=== PATIENT | male | born 1960 | race Caucasian/White ===

== ENCOUNTER 2016-08-20 13:15 | Inpatient (IN) | payer OTHER ==
[~2016-08-20 13:15] MED LIST: Naloxone 0.4 mg/mL 1mL Vial ONE
[2016-08-20 13:23] VITALS: BP 126/83
--- NOTE | 2016-08-20 13:39 | ED Physician Chart ---
Chief Complaint/HPI - Patient Information Date Seen:: 08/20/16 Time Seen:: 13:34 Chief Complaint:: overdose History of Present Illness:: pt found w decreased LOC at home...brought in by ems. pt found at home w 2 empty bottles of norco and klonopin nearby. he has a past hx of 2x attempted suicide w 1x by driving car off a [place] and 1x by OD in past. no note or known conversation of threatened suicide lately. pt found to be breathing ok w vs ok . he was totally unresponsive to stimuli. EMS found pt had a ok fsbs. iv was started in l arm and narcan 2mg given w/o change in status. as of initial encounter in ED pt was given a trial of narcan 2mg w no change and then was intubated for airway protection as pt seems to have no corneal nor gag reflex. minimal hx available....a spouse is supposed to be on way. 1;37p (3;41p) arrives now as a ems run w alt loc and etoh and ? drug od ingestion. she is alert and talking and seems to indicate that Parrish may have ingested SOMA as well. she says he was unresponsive/unarousable for 10 hrs prior to her call for ems. Allergies:: Allergies Allergy/AdvReac Type Severity Reaction Status Date / Time UNOBTN - Unobtainable Allergy Verified 08/20/16 13:23 Vitals:: Vital Signs - 8 hr 08/20/16 13:23 Temp 97.5 F HR 88 RR 25 BP 126/83 O2 Sat % 97 Historian:: EMS Review of Systems - Review of Systems General/Constitutional: Other (pt unable to speak on arrival. LOC) Neurological: Weakness, Confusion Past Medical History - Past Medical History Past Medical History: Other (unknown) Social History: Other (lives at home w spouse) Medication: Reviewed Family Medical History - Family Member Mother History Unknown: Yes Physical Exam - Physical Examination General/Constitutional: Well-developed, well-nourished, No distress, Non-toxic appearing Other Gen/Cons comments:: thin muscular male w mult of tatoos. pt is totally unresponsive to gag reflex, corneal reflex nor deep stimulation. a dropped hand does hit his face. pts lungs are clear and breathing steady. no sx of trauma. no spontaneous mvts. appears wn/wh. Head: Atraumatic Eyes: Lids, conjuctiva normal, PERRL, EOMI Skin: Nl inspection, No rash, No skin lesions, No ecchymosis, Well hydrated, No lymphadenopathy ENMT: External ears, nose nl, Lips, teeth, gums nl Neck: No JVD, No nuchal rigidity, No bruit, No mass, No stridor Respiratory: Nl effort/Exclusion, Clear to Auscultation, No Wheeze/Rhonchi/Rales Cardio Vascular: RRR, No murmur, gallop, rubs, NL S1 S2 GI: No tenderness/rebounding/guarding, No organomegaly, No hernia, Normal BS's, Nondistended, No mass/bruits, No McBurney tenderness : No CVA tenderness Extremities: No tenderness or effusion, Full ROM, normal strength in all extremities, No edema, Normal digits & nails Other Extremities comments:: cold in distal extremities but w palpable pulses Neuro/Psych: DTR's symmetric Misc: normal gait, Normal back, No paraspinal tenderness Labs/Radiology/EKG Results - Lab Results Results: Laboratory Tests 08/20/16 08/20/16 08/20/16 13:40 13:40 13:40 WBC 8.3 RBC 4.64 Hgb 15.5 Hct 45.9 MCV 98.8 MCH 33.4 H MCHC Differential 33.8 RDW 12.7 Plt Count 135 L MPV 7.5 Band Neutrophils % 1 Neutrophils (Manual) 86 H Lymphocytes 5 L Monocytes 8 Eosinophils 0 Platelet Estimate ADEQUATE Platelet Morphology NORMAL RBC Morph Micro Appear NORMAL Specimen Source Sample Site pH pCO2 pO2 HCO3 Base Excess O2 Saturation Octavio Test Vent Rate Inspired O2 Tidal Volume PEEP Pressure (ins/psv/peep) Critical Value Sodium 132 L Potassium 4.8 Chloride 109 H Carbon Dioxide 16.0 L Anion Gap 11.8 BUN 11 Creatinine 0.9 Est GFR ( Amer) > 60.0 Est GFR (Non-Af Amer) > 60.0 BUN/Creatinine Ratio 12.2 Glucose 124 H Calcium 9.0 Total Bilirubin 0.3 AST 16 ALT 9 Alkaline Phosphatase 45 Creatine Kinase Troponin I Total Protein 6.9 Albumin 4.0 L Globulin 2.9 Albumin/Globulin Ratio 1.4 Urine Source Urine Color Urine Clarity Urine pH Ur Specific [place] Urine Protein Urine Glucose (UA) Urine Ketones Urine Blood Urine Nitrate Urine Bilirubin Urine Urobilinogen Ur Leukocyte Esterase Urine RBC Urine WBC Ur Epithelial Cells Urine Bacteria Salicylates < 25.0 L Urine Opiates Screen Acetaminophen < 10.0 L Ur Barbiturates Screen Ur Phencyclidine Scrn Amphetamines Screen U Methamphetamines Scrn U Benzodiazepines Scrn U Cocaine Metab Screen U Cannabinoids Screen Ethyl Alcohol < 10 08/20/16 08/20/16 08/20/16 13:40 13:40 13:45 WBC RBC Hgb Hct MCV MCH MCHC Differential RDW Plt Count MPV Band Neutrophils % Neutrophils (Manual) Lymphocytes Monocytes Eosinophils Platelet Estimate Platelet Morphology RBC Morph Micro Appear Specimen Source Sample Site pH pCO2 pO2 HCO3 Base Excess O2 Saturation Octavio Test Vent Rate Inspired O2 Tidal Volume PEEP Pressure (ins/psv/peep) Critical Value Sodium Potassium Chloride Carbon Dioxide Anion Gap BUN Creatinine Est GFR ( Amer) Est GFR (Non-Af Amer) BUN/Creatinine Ratio Glucose Calcium Total Bilirubin AST ALT Alkaline Phosphatase Creatine Kinase 138 Troponin I < 0.01 L Total Protein Albumin Globulin Albumin/Globulin Ratio Urine Source CATH Urine Color YELLOW Urine Clarity HAZY Urine pH 5.5 Ur Specific [place] 1.025 Urine Protein 30 H Urine Glucose (UA) NEGATIVE Urine Ketones TRACE Urine Blood LARGE H Urine Nitrate NEGATIVE Urine Bilirubin NEGATIVE Urine Urobilinogen 0.2 Ur Leukocyte Esterase NEGATIVE Urine RBC >100 H Urine WBC 0-2 Ur Epithelial Cells RARE Urine Bacteria FEW Salicylates Urine Opiates Screen Acetaminophen Ur Barbiturates Screen Ur Phencyclidine Scrn Amphetamines Screen U Methamphetamines Scrn U Benzodiazepines Scrn U Cocaine Metab Screen U Cannabinoids Screen Ethyl Alcohol 08/20/16 08/20/16 13:45 14:08 WBC RBC Hgb Hct MCV MCH MCHC Differential RDW Plt Count MPV Band Neutrophils % Neutrophils (Manual) Lymphocytes Monocytes Eosinophils Platelet Estimate Platelet Morphology RBC Morph Micro Appear Specimen Source Arterial Sample Site RB pH 7.27 L pCO2 36.0 pO2 224.0 H HCO3 16.5 L Base Excess -9.6 L O2 Saturation 100.0 Octavio Test NA Vent Rate 12 Inspired O2 60 Tidal Volume 500 PEEP 5 Pressure (ins/psv/peep) NA Critical Value E.COHN Sodium Potassium Chloride Carbon Dioxide Anion Gap BUN Creatinine Est GFR ( Amer) Est GFR (Non-Af Amer) BUN/Creatinine Ratio Glucose Calcium Total Bilirubin AST ALT Alkaline Phosphatase Creatine Kinase Troponin I Total Protein Albumin Globulin Albumin/Globulin Ratio Urine Source Urine Color Urine Clarity Urine pH Ur Specific [place] Urine Protein Urine Glucose (UA) Urine Ketones Urine Blood Urine Nitrate Urine Bilirubin Urine Urobilinogen Ur Leukocyte Esterase Urine RBC Urine WBC Ur Epithelial Cells Urine Bacteria Salicylates Urine Opiates Screen POSITIVE H Acetaminophen Ur Barbiturates Screen NEGATIVE Ur Phencyclidine Scrn NEGATIVE Amphetamines Screen NEGATIVE U Methamphetamines Scrn NEGATIVE U Benzodiazepines Scrn POSITIVE H U Cocaine Metab Screen NEGATIVE U Cannabinoids Screen NEGATIVE Ethyl Alcohol - Radiology Results Results: cxr ett placed ok. else nad ct head nad per rad report (;17) - EKG Interpretations EKG Time:: 13:50 Rhythm: nsr Rate: 83 Comments:: st elev minimal w upward concavity in inferior leads (read by machine as pos acute inf HI) [2;01pm read and call placed to IC Cards...] Assessment - Assessment Critical Care Time: 100 Excludes all billable procedures: Yes This condition life threatening/high prob of deterioration: Yes - Procedures Procedures:: INTUBATION for airway protection on pt w decreased LOC w no gag reflex despite narcan 4mg total. Pt intubated w 7.5 ett using direct laryngoscopy. no aspiration seen. suction was at ready. placement of ett confirmed by auscultation and chest rise and sao2. colorimetric change was poor initially indication likely presence of hypercapneic initially. ett confirmed ok by cxr. pt was not alert enough and no fam member here to give us consent so consent assumed due to pt severity and imminent danger ED Septic Shock - . Is Septic Shock (SBP<90, OR Lactate>4 mmol\L) present?: No - <6hrs of presentation: Vital Signs: Vital Signs - 8 hr 08/20/16 13:23 Temp 97.5 F HR 88 RR 25 BP 126/83 O2 Sat % 97 Reassessment (Disposition) - Reassessment Reassessment:: pt having mild twitching of arms. could be sz activity or shivering or posturing. pupils are midrange an d reactive sltly but w no nystagmus etc;;; ativan 2mg iv ordered now (2;20p) (2;35) case justo Vega (distribution driver Cards Dr) he has reviewed EKG and does not think it is a AMI. I agree that the ECG is not convincing to me for this either. case dw DR Sandra will admit to ICU... psy consult ... Reassessment Condition:: Improved - Diagnosis Diagnosis:: 1 acute altered mental status 2 suspected multi drug overdose with soma, norco (or other narcotic), and klonopin 3 suspected suicide attempt - Patient Disposition Admitted to:: ICU Condition at Disposition:: Improved
[2016-08-20] MEDS ORDERED: Naloxone 0.4 mg/mL 1mL Vial IV ONE (13:43)
[2016-08-20] MEDS ORDERED: Sodium Chloride 0.9% 1,000 ML IV ONE ×2 (13:43→14:07)
--- NOTE | 2016-08-20 13:46 | Diagnostic Imaging Report ---
CHEST X-RAY: AP view INDICATION: Intubation COMPARISON: None FINDINGS: An endotracheal tube is in place with tip 4.5 cm above the Ana. No focal consolidation or pleural effusions. Heart size is normal. There are probable old right rib fractures. IMPRESSION: Interval intubation with ET tube tip 4.5 cm above the Ana. No focal consolidation identified. Probable old right rib fractures. No evidence of pneumothorax.
[2016-08-20 13:51] LABS: HEMATOCRIT 45.9 % (39.0-49.0); HEMOGLOBIN 15.5 gm/dL (13.2-17.3); MEAN CELL VOLUME 98.8 fl (80-99); MEAN CORPUSCULAR HEMOGLOBIN 33.4 pg (26.0-30.0); MEAN CORPUSCULAR HGB CONC 33.8 pg (28.0-36.0); MEAN PLATELET VOLUME 7.5 fl; PLATELET COUNT 135 Th/cmm (150-400); RED BLOOD COUNT 4.64 Mil/cmm (4.30-5.70); RED CELL DISTRIBUTION WIDTH 12.7 % (11.5-20.0); WHITE BLOOD COUNT 8.3 Th/cmm (4.8-10.8)
[2016-08-20 14:04] LABS: URINE BILIRUBIN NEGATIVE (NEGATIVE); URINE BLOOD LARGE (NEGATIVE); URINE COLOR YELLOW; URINE GLUCOSE (UA) NEGATIVE (NEGATIVE); URINE PH 5.5; URINE PROTEIN 30 mg/dL (NEGATIVE); URINE UROBILINOGEN 0.2 E.U./dL (0.2 - 1.0)
[2016-08-20 14:05] LABS: URINE BACTERIA FEW /hpf (NONE SEEN); URINE EPITHELIAL CELLS RARE /lpf (FEW); URINE KETONE TRACE mg/dL (NEGATIVE); URINE RBC >100 /hpf (0-5); URINE WBC 0-2 /hpf (0-5)
[2016-08-20 14:08] LABS: ACETAMINOPHEN < 10.0 ug/mL (10.0-30.0); ALB/GLOB RATIO 1.4 (1.0-1.8); ALKALINE PHOSPHATASE 45 U/L (34-104); ANION GAP 11.8 (7.0-16.0); BILIRUBIN,TOTAL 0.3 mg/dL (0.3-1.0); BUN - UREA NITROGEN 11 mg/dL (7-25); BUN/CREATININE RATIO 12.2; CHLORIDE 109 mEq/L (98-107); CREATININE - SERUM 0.9 mg/dL (0.7-1.3); GLUCOSE 124 mg/dL (70-105); POTASSIUM SERUM 4.8 mEq/L (3.5-5.1); SGOT 16 U/L (13-39); SGPT/ALT 9 U/L (7-52); SODIUM SERUM 132 mEq/L (136-145)
[2016-08-20 14:13] LABS: AMPHETAMINE URINE NEGATIVE (NEGATIVE); BARBITURATES URINE NEGATIVE (NEGATIVE)
[2016-08-20 14:18] LABS: BAND NEUTROPHILE 1 % (0-10); EOSINOPHIL 0 % (0-5); NEUTROPHILS 86 % (40-80); PLATELET ESTIMATE ADEQUATE (NORMAL); PLATELET MORPHOLOGY NORMAL (NORMAL); TOTAL CELLS COUNTED 100
[2016-08-20 14:27] LABS: ABG SOURCE Arterial; BE(B) -9.6 mmol/L (-3.0-3.0); HCO3 16.5 mmol/L (20.0-26.0); pH 7.27 (7.35-7.45)
[2016-08-20 14:28] LABS: FIO2 60; MECH RATE 12; MECH VT 500
--- NOTE | 2016-08-20 15:17 | Diagnostic Imaging Report ---
Head CT without intravenous contrast Indication: pain Comparison: None Technique: Axial images were obtained from the vertex to the skull base without IV contrast. Coronal reconstructions were made. Total DLP: 647, [id number] FINDINGS: Images of the brain obtained without contrast demonstrate no acute hemorrhage. No mass lesions identified. The ventricles and basal cisterns are patent. The hernandez-white matter differentiation is preserved. There is no mass effect or midline shift. No skull fractures identified. Secretions of the nasal nasopharyngeal regions are noted. IMPRESSION: No acute intracranial abnormality Secretions of the nasal and nasopharyngeal regions, correlate clinically.
[2016-08-20] MEDS ORDERED: Albuterol Nebulizer 2.5mg/3mL HHN SCH (17:00)
[2016-08-20] MEDS: D5-0.9%NS 1,000 ML IV SCH (17:22)
[2016-08-20] MEDS: Pantoprazole 40 mg EC Tab PO SCH (18:00)
[2016-08-20] MEDS: Ipratropium Neb 0.5 mg/2.5 mL UD HHN SCH (18:58)
[2016-08-20] MEDS: Albuterol Nebulizer 2.5mg/3mL HHN SCH (18:58)
[2016-08-20] MEDS ORDERED: cefTRIAXone 1 GM in Sodium Chloride 0.9% 50 ML IV ONE (19:15)
[2016-08-20] MEDS ORDERED: Sodium Bicarbonate 8.4% 50mEq PFS IVP ONE (19:35)
[2016-08-20] MEDS: Chlorhexidine Gluconate 0.12% 15mL Mouthwash MM SCH (20:27)
--- NOTE | 2016-08-20 23:44 | Admit Criteria Form ---
Admit Criteria Forms - Admit Criteria Diagnosis: DRUG INGESTION OR OVERDOSE Clinical Indications for Admission to Inpatient Care ( Place 'X' for any and all applicable criteria): Admission is indicated for severe toxicity as indicated by ANY ONE of the following(1)(2)(3)(4)(5)(6): [ X]I. Inpatient admission required rather than observation care (Also use Drug Ingestion or Overdose: Observation Care guideline as appropriate) because of ANY ONE of the following: [ ]a) Altered mental status that is severe or persistent [ ]b) Clinical finding (eg, metabolic acidosis, hypoglycemia, bradycardia) that is severe or persistent [ ]c) Toxic drug level that is persistent [ ]d) Psychiatric risk status not acceptable for outpatient management [ ]e) Continuous intravenous infusion of anticoagulation, platelet inhibitor, vasoactive, or antiarrhythmic medication (15)(16) [X ]f) Other condition, treatment or monitoring requiring inpatient admission [ ]II. Respiratory abnormalities [ ]III. Specific finding indicating severe and likely prolonged drug toxicity [ ]IV. Hemodynamic instability [ ]V. Dangerous arrhythmia [ ]. Hypertension requiring inpatient treatment Extended stay beyond goal length of stay may be needed for (4): [ ]a) Neurologic or respiratory compromise [ ]b) Hemodynamic instability [ ]c) Persistent toxic drug levels (25) [ ]d) Severe drug toxicities or complications [ ]e) Ongoing antidote treatment (eg, acetaminophen overdose)(5) [ ]f) Older patients(65 years or older) The original [facility] content created by [employer] has been revised. The portions of the content which have been revised are identified through the use of italic text or in bold, and [facility] has neither reviewed nor approved the modified material. All other unmodified content is copyright [facility]. Please see references footnoted in the original [facility] edition 2016
[2016-08-21 05:19] LABS: % BASOPHILS 0.1 % (0.0-2.0); % EOSINOPHILS 0.2 % (0.0-5.0); % LYMPHOCYTES 10.1 % (20.0-50.0); % MONOCYTES 9.8 % (2.0-10.0); % NEUTROPHILS 79.8 % (40.0-80.0); HEMOGLOBIN 13.8 gm/dL (13.2-17.3); MEAN CELL VOLUME 98.9 fl (80-99); MEAN CORPUSCULAR HEMOGLOBIN 33.5 pg (26.0-30.0); MEAN CORPUSCULAR HGB CONC 33.9 pg (28.0-36.0); MEAN PLATELET VOLUME 7.7 fl; NEUTROPHILE ABSOLUTE 6.9 Th/cmm (1.8-8.0); PLATELET COUNT 160 Th/cmm (150-400); RED BLOOD COUNT 4.13 Mil/cmm (4.30-5.70); RED CELL DISTRIBUTION WIDTH 13.1 % (11.5-20.0); WHITE BLOOD COUNT 8.6 Th/cmm (4.8-10.8)
[2016-08-21 05:32] LABS: HEMATOCRIT 40.9 % (39.0-49.0)
[2016-08-21 05:41] LABS: ALB/GLOB RATIO 1.5 (1.0-1.8); ALKALINE PHOSPHATASE 40 U/L (34-104); ANION GAP 6.3 (7.0-16.0); BILIRUBIN,TOTAL 0.3 mg/dL (0.3-1.0); BUN - UREA NITROGEN 10 mg/dL (7-25); CALCIUM SERUM 8.6 mg/dL (8.6-10.3); CARBON DIOXIDE 20.5 mEq/L (21.0-31.0); CHLORIDE 114 mEq/L (98-107); GLUCOSE 139 mg/dL (70-105); MAGNESIUM 1.8 mg/dL (1.9-2.7); PHOSPHOROUS 1.8 mg/dL (2.5-5.0); POTASSIUM SERUM 3.8 mEq/L (3.5-5.1); SGOT 13 U/L (13-39); SGPT/ALT 6 U/L (7-52); SODIUM SERUM 137 mEq/L (136-145)
[2016-08-21 05:42] LABS: ACETAMINOPHEN < 10.0 ug/mL (10.0-30.0)
[2016-08-21] MEDS: D5-0.9%NS 1,000 ML IV SCH ×2 (05:47→17:17)
[2016-08-21 05:53] LABS: BNP 9.9 pg/mL (5.0-100.0)
[2016-08-21 06:36] LABS: TSH 1.22 uIU/ml (0.34-5.60)
[2016-08-21] MEDS: Albuterol Nebulizer 2.5mg/3mL HHN SCH ×4 (07:49→19:18)
[2016-08-21] MEDS: Ipratropium Neb 0.5 mg/2.5 mL UD HHN SCH ×4 (07:49→19:18)
[2016-08-21] MEDS: Chlorhexidine Gluconate 0.12% 15mL Mouthwash MM SCH (08:32)
[2016-08-21] MEDS: Pantoprazole 40 mg EC Tab PO SCH ×2 (08:32→16:11)
[2016-08-21 09:01] LABS: pH 7.52 (7.35-7.45)
[2016-08-21 09:02] LABS: ABG SOURCE Arterial; ALLEN TEST YES; BE(B) -0.5 mmol/L (-3.0-3.0); FIO2 30; HCO3 21.2 mmol/L (20.0-26.0); MECH RATE 16; MECH VT 500
--- NOTE | 2016-08-21 09:13 | Diagnostic Imaging Report ---
CHEST X-RAY: AP view INDICATION: NG tube placement COMPARISON: Chest x-ray 08/20/2016 at 1340 FINDINGS: Multiple images were obtained. Endotracheal tube is seen with tip 3 cm above the Ana. The final image demonstrates advancement of the NG tube and NG tube along the fundal portion of the stomach. Chronic lung changes are seen with no focal consolidation identified. IMPRESSION: NG tube within the fundal portion of the stomach No focal consolidation identified.
--- NOTE | 2016-08-21 09:14 | Diagnostic Imaging Report ---
CHEST X-RAY: AP view INDICATION: Pneumonia COMPARISON: Chest x-ray 08/20/2016 at 21:36 FINDINGS: ET tube and NG tube are stable. No focal consolidation or pleural effusions. Mild chronic lung changes are noted. Heart size is normal. IMPRESSION: No focal airspace consolidation identified.
[2016-08-21 09:38] LABS: AMPHETAMINE URINE NEGATIVE (NEGATIVE); BARBITURATES URINE NEGATIVE (NEGATIVE)
[2016-08-21] MEDS ORDERED: Mag Sulfate 2gm/50mL Premix 2 GM/50 ML BAG IV ONE (09:52)
[2016-08-21] MEDS ORDERED: Sodium Phosphate 20 MMOLE in Sodium Chloride 0.9% 250 ML IV ONE (09:54)
--- NOTE | 2016-08-21 10:34 | Consultation ---
HISTORY OF PRESENT ILLNESS: The patient is a 55-year-old. The patient was found unresponsive with some ____ around him. The patient came in here. The patient had to be intubated. The patient on the vent. Nursing staff told me that the patient has become much more awake, alert. He would actually not ____ according to the respiratory therapist. Then, he became agitated. The patient had to be given Ativan. He is more sedated now. The patient moves all extremities. PAST MEDICAL HISTORY: The patient has no other major medical problems. The patient noted to have occasional twitching like episodes. The patient has history of depression and suicidal attempt ____. REVIEW OF SYSTEMS: Not obtainable. No seizures, ____ question of some twitches. PHYSICAL EXAMINATION: VITAL SIGNS: Temperature 98.9, blood pressure 130/70, pulse is 78. NECK: Supple. No neck veins. NEUROLOGIC: The patient intubated on the vent. To verbalize, I did not get much ____ at the moment, though the staff told me he could respond earlier before the Ativan. To mild painful stimulation, he will grimace and withdraw. Pupils react to light. Corneal reflex present. Withdrawal as above. INVESTIGATIONS: CT scan of the head negative. LABORATORY DATA: Noted positive urine screen for benzodiazepines. IMPRESSION: The patient with encephalopathy with improvement. Most likely secondary to medication. MANAGEMENT: At this time, try to wean the patient off the ventilator. Once he is weaned off, plan to go ahead and do an MRI. Further workup depending on the patient's progress. [facility]# [id number]
[2016-08-21 16:10] LABS: ABG SOURCE Arterial; ALLEN TEST YES; BE(B) 1.4 mmol/L (-3.0-3.0); FIO2 35; HCO3 24.7 mmol/L (20.0-26.0); pH 7.47 (7.35-7.45)
[2016-08-21] MEDS ORDERED: cefTRIAXone 1 GM in Sodium Chloride 0.9% 50 ML IV ONE (17:15)
--- NOTE | 2016-08-21 19:57 | History & Physical ---
INITIAL COMPLAINTS: 1. Altered level of consciousness. 2. Difficulty breathing. 3. Probable drug overdose. HISTORY OF PRESENT ILLNESS: This patient is a 55-year-old male who presented to [facility] on 08/20/2016, in the late afternoon via ambulance for being nonresponsive found at the home setting by his . There was a bottle of Soma near the bedside. The patient was treated emergently by the ER doctor at [facility] who immediately noted the altered level of consciousness and difficulty breathing that the patient had and intubated the patient emergently. The other parameters this patient was experiencing in the Emergency Department were decreased pH of 7.27, after intubation an increased pO2 of 224, a low bicarbonate of 16.5. Sodium low of 132, chloride high at 109, and carbon dioxide low at 16.0. Glucose high at 124, increased lactic acid 2.54, normal troponin I. Urine high for protein, large for blood and red blood cells. Urine drug screen was positive for opiates and for benzodiazepines. The patient also received some imaging, which included CT scan of the head without contrast performed on 08/20/2016. No acute intracranial abnormality. Also, the patient received an EKG demonstrating a normal sinus rhythm with blood pressure of 132/84. Actually, the patient was in normal sinus rhythm and slightly tachycardic. The patient has a history of taking [place] for disabling low back pain, Soma for the same, and Xanax for anxiety. Prior to the admission, the patient had taken a recent trip to [facility] to assist the family member with a work project. SOCIAL HISTORY: This patient lives with , has children living away from home and is known to smoke cigarettes, duration unknown. It is unknown if this patient is more than a ulkm-ki-f-while social drinker. ALLERGIES: This patient has no known drug allergies. REVIEW OF SYSTEMS: HEENT: Significant for today's admission in that the patient is nonresponsive and does not demonstrate normal facial tone. CHEST: Significant for today's admission in that the patient has difficulty breathing with slowed incursions and excursions breathing. LUNGS: Significant for today's admission in that the patient has difficulty breathing and required intubation. CARDIAC: Not significant for today's admission. EXTREMITIES: Significant in that the patient is supine, unresponsive. PSYCHIATRIC: Significant in that this may be a possible suicide attempt. NEUROLOGICAL: Significant for today's admission in that the patient is becoming progressively more comatose. PHYSICAL EXAMINATION: HEENT: Tympanic membranes are intact. Oropharynx, unable to be determined secondary to intubation. Pupils are equally reactive to light and accommodation. Eyes are closed. [place] coma scale of the eyes scored a 1. There is brisk response to direct light shine into each eye. Both eyes respond equally and briskly with pupil constriction on being exposed to direct bright light. The cephalous is normal with no apparent trauma. CHEST: With the assistance of ventilator, the normal excursions and incursions are occurring secondary to intubation. LUNGS: Clear to auscultation, right and left anteriorly and posteriorly. CARDIAC: Sinus rhythm. No gross murmurs. ABDOMEN: Nondistended, nontender to palpation in all 4 quadrants. Positive bowel sounds throughout. No masses and no organomegaly. PSYCHIATRIC: Unable to be determined. NEUROLOGICAL: The patient has a [place] coma scale of 3. Eyes 1, verbal 1, and motor 1. Lowest 3/15. 3 being minimum, 15 being maximum. This patient is in a deep coma on examination by myself. IMPRESSION: 1. Multidrug overdose. 2. Possible suicide attempt. 3. Anoxic brain injury. 4. Comatose patient. 5. Metabolic derangements. 6. . PLAN: 1. Admit the patient to ICU. 2. Maintain intubation. Rocephin 1000 mg IV piggyback, activated charcoal. Place NG tube. Place Gonzalez catheter. CONSULTS: 1. Neurology, Dr. [place], for comatose state. 2. Pulmonology, Dr. Shirley, for respiratory distress, need for intubation to be determined and future extubation. 3. Cardiology, Dr. Denis Ye for tachycardia. 4. Psychiatry, Dr. Isabelle Valeds for possible suicide attempt. The patient should be given Ativan 2 mg IV slow push q.6h. p.r.n. anxiety, D5 IV, heparin protocol, Atrovent nebulizer, losartan 25 mg q.6h. p.r.n. elevated blood pressure, Meclizine 25 mg via NG tube p.o. every day, Zofran 4 mg via NG tube q.8h. p.r.n. nausea and vomiting, Protonix 40 mg p.o. b.i.d. via NG tube. JOB# [id number]
--- NOTE | 2016-08-21 20:26 | Consultation ---
AGE: 55. SEX: Male. PHYSICIAN: Dr. Bedoya. LOCOMOTIVE OPERATOR: Dr. Valdes. TYPE OF THE REPORT: Psychiatric consultation. REASON FOR THE CONSULT: Suicidal attempt. HISTORY OF PRESENT ILLNESS: The patient is a 55-year-old male who has history of multiple suicidal attempts. The patient lost his father about 3 weeks ago. The patient overdosed on large amount of pills. The patient was intubated and currently extubated, but he is still sleepy and sedated and he was not able to answer any of my questions and most of the information obtained from Dr. Bedoya. Also, the patient's ____ Dr. Bedoya, but she was not available at this time. The patient has history of multiple suicidal attempts that are serious including trying to jump his car off a [place]. It is not clear if the patient did have some psychiatric treatment on the past, but it seems that he has multiple serious suicidal attempts. At this time, the patient is not able to answer any of the questions. According to Dr. Bedoya, the patient was seeing a psychiatrist with the same result. According to Dr. Bedoya, the patient was not getting any better. PAST PSYCHIATRIC HISTORY: The patient was not able to tell, but he was seeing a psychiatrist and has history of multiple psychiatric hospitalizations. PAST MEDICAL HISTORY: The patient has overdosed on pills including Klonopin. SOCIAL HISTORY: The patient is . He has a history street drug use ____ to be serious and it seems that he was continuously using. MENTAL STATUS EXAM: The patient is currently sedated and he was not able to answer any of my questions. Unable to assess the rest of the mental status exam at this time because of his sedation. ASSESSMENT: Major depression, severe, recurrent, without psychotic features. SECONDARY DIAGNOSIS: History of polysubstance use disorder. TREATMENT PLAN: We will continue close observation of the patient in the ICU. We will try to interview the patient and evaluate the patient for further recommendations when he is more alert. It sounds that patient has serious suicidal attempt and patient might need to be hospitalized. We will wait for further evaluation. ____ Dr. Bedoya and we will follow up with you. JOB# [id number]
--- NOTE | 2016-08-21 21:10 | Consultation ---
The patient of Dr. Brandon Bedoya. HISTORY AND PHYSICAL: This is a 55-year-old male patient who was found unresponsive. The patient had overdosed on narcotic. The patient is intubated at the present time and transferred to ICU. Cardiology consult was requested. PAST MEDICAL HISTORY: Major depression, suicidal tendency. FAMILY HISTORY: Unremarkable. SOCIAL HISTORY: Not available at this time. PHYSICAL EXAMINATION: VITAL SIGNS: Blood pressure 130/80, pulse 88, and respirations on ventilator. HEAD: Normocephalic. No lumps or bumps. EYES: Pupils are equal and reactive to light. Fundi show AV nicking. Sclerae white and conjunctivae pink. NECK: Carotid 2+. Normal upstroke. JVD flat. Thyroid not palpable. Lymph nodes not palpable. CHEST: Shows increased AP diameter. No kyphosis or scoliosis. LUNGS: Bilateral wheezing, rhonchi, and prolonged expiration. HEART: PMI in fifth intercostal space with lateral to midclavicular line. S1, S2, S3, S4, systolic murmur, grade 2/6, lower left sternal border without radiation. ABDOMEN: Soft. Liver and spleen not palpable. No organomegaly. Bowel sounds active. NEUROLOGIC: No focal neurological deficit. EXTREMITIES: Peripheral pulses 2+. No pedal edema. CLINICAL IMPRESSION: Acute respiratory failure, on ventilator; major depression; suicidal tendency; and supraventricular tachycardia. PLAN: Admit the patient and monitor the patient closely. Continue vent management. [facility]# [id number]
--- NOTE | 2016-08-22 00:23 | Consultation ---
Thank you very much for this consultation. HISTORY OF PRESENT ILLNESS: This is a 55-year-old male who presented with drug overdose apparently Klonopin and [place], apparently, it was intentional as the patient tried to commit suicide according to the nursing report. The patient required to be intubated and placed on the ventilator for altered level of consciousness. The patient is now awake, alert, and not in acute distress. Follows commands. REVIEW OF SYSTEMS: Unable to obtain because of the patient's condition. PHYSICAL EXAMINATION: VITAL SIGNS: Temperature is 100.2, pulse 109, respirations 17, blood pressure 140/75, and saturation 99%. HEENT: Atraumatic and normocephalic. Pupils are reactive to light and accommodation. Ears, nose, and throat are normal. NECK: Supple. No JVD. CHEST: There are good breath sounds bilaterally. No wheezing or crackles. HEART: Sinus tachycardia. No murmurs. ABDOMEN: Soft and nontender. EXTREMITIES: No edema. LABORATORY DATA: WBC is 8.6, hemoglobin 13.8, hematocrit 40.9, ABGs: pH of 7.52, pCO2 of 26, pO2 of 91, bicarbonate is 21, and saturation 98%. Sodium is 137, potassium 3.8, BUN 10, creatinine 1. Chest x-ray shows no acute infiltrate. IMPRESSION: This is a 55-year-old male with; 1. Intentional drug overdose. 2. Respiratory failure secondary to the above. PLAN: 1. Nebulizer treatment. 2. Wean off to extubate if tolerated. We will follow the patient with you. [facility]# [id number] ANCA
[2016-08-22] MEDS: D5-0.9%NS 1,000 ML IV SCH ×2 (03:21→14:11)
[2016-08-22] MEDS: Ipratropium Neb 0.5 mg/2.5 mL UD HHN SCH ×4 (07:40→19:27)
[2016-08-22] MEDS: Albuterol Nebulizer 2.5mg/3mL HHN SCH ×4 (07:40→19:27)
[2016-08-22] MEDS: Pantoprazole 40 mg EC Tab PO SCH ×2 (09:03→17:18)
[2016-08-22 09:19] LABS: FOLIC ACID 4.8 ng/mL (>3.0)
[2016-08-22] MEDS ORDERED: D5-0.9%NS 1,000 ML IV SCH (19:26)
[2016-08-22] MEDS: Hydrocodone/APAP 10 mg/325 mg Tab PO PRN (20:06)
[2016-08-23] MEDS: Hydrocodone/APAP 10 mg/325 mg Tab PO PRN ×3 (04:41→19:58)
[2016-08-23] MEDS: Albuterol Nebulizer 2.5mg/3mL HHN SCH ×4 (07:13→22:46)
[2016-08-23] MEDS: Ipratropium Neb 0.5 mg/2.5 mL UD HHN SCH ×4 (07:13→22:47)
[2016-08-23] MEDS: Pantoprazole 40 mg EC Tab PO SCH ×2 (08:50→17:20)
[2016-08-23 19:17] LABS: % BASOPHILS 0.5 % (0.0-2.0); % EOSINOPHILS 1.8 % (0.0-5.0); % LYMPHOCYTES 24.5 % (20.0-50.0); % MONOCYTES 7.3 % (2.0-10.0); % NEUTROPHILS 65.9 % (40.0-80.0); MEAN CELL VOLUME 98.2 fl (80-99); MEAN CORPUSCULAR HGB CONC 34.6 pg (28.0-36.0); MEAN PLATELET VOLUME 7.8 fl; NEUTROPHILE ABSOLUTE 3.1 Th/cmm (1.8-8.0); PLATELET COUNT 134 Th/cmm (150-400); RED BLOOD COUNT 3.47 Mil/cmm (4.30-5.70); RED CELL DISTRIBUTION WIDTH 12.8 % (11.5-20.0)
[2016-08-23 19:21] LABS: HEMOGLOBIN 11.8 gm/dL (13.2-17.3); WHITE BLOOD COUNT 4.8 Th/cmm (4.8-10.8)
[2016-08-23 19:22] LABS: HEMATOCRIT 34.1 % (39.0-49.0)
[2016-08-23 19:46] LABS: ALB/GLOB RATIO 1.5 (1.0-1.8); ALKALINE PHOSPHATASE 34 U/L (34-104); ANION GAP 7.3 (7.0-16.0); BILIRUBIN,TOTAL 0.3 mg/dL (0.3-1.0); BUN - UREA NITROGEN 10 mg/dL (7-25); BUN/CREATININE RATIO 14.3; CALCIUM SERUM 8.8 mg/dL (8.6-10.3); CARBON DIOXIDE 25.5 mEq/L (21.0-31.0); CHLORIDE 107 mEq/L (98-107); CREATININE - SERUM 0.7 mg/dL (0.7-1.3); GLUCOSE 105 mg/dL (70-105); POTASSIUM SERUM 3.8 mEq/L (3.5-5.1); SGOT 23 U/L (13-39); SGPT/ALT 19 U/L (7-52); SODIUM SERUM 136 mEq/L (136-145)
[2016-08-23 21:46] LABS: URINE BILIRUBIN NEGATIVE (NEGATIVE); URINE BLOOD NEGATIVE (NEGATIVE); URINE COLOR STRAW; URINE GLUCOSE (UA) NEGATIVE (NEGATIVE); URINE KETONE NEGATIVE (NEGATIVE)
[2016-08-23 21:47] LABS: URINE BACTERIA NONE SEEN /hpf (NONE SEEN); URINE EPITHELIAL CELLS NONE SEEN /lpf (FEW); URINE PROTEIN NEGATIVE (NEGATIVE); URINE RBC NONE SEEN /hpf (0-5); URINE UROBILINOGEN 0.2 E.U./dL (0.2 - 1.0); URINE WBC NONE SEEN /hpf (0-5)
--- NOTE | 2016-08-24 04:13 | Progress Notes ---
Case was discussed with staff of the patient and reviewed records, covering for Dr. Valdes. This is a 55-year-old male who had three suicide attempts[address] Dr. Valdes previously had put him on hold. He is danger to self. He is still in ICU. His vital signs are currently stable. The patient on 1:1 suicide precaution, diagnosed with depression. The patient apparently had been ____, but now ____ recovery. He is reporting no side effects. No sedation and no nausea. I recommend that to continue the patient on 1:1 suicide precautions. Continue medication. He is on Seroquel 12.5 mg daily. Continue his antidepressant. Thank you very much for allowing me to participate in the care of this most interesting gentleman. The patient is already on 1:1 suicide precaution. Thank you and I recommend that you continue that. JOB# [id number]
[2016-08-24] MEDS: Hydrocodone/APAP 10 mg/325 mg Tab PO PRN ×3 (05:17→20:43)
[2016-08-24] MEDS: Ipratropium Neb 0.5 mg/2.5 mL UD HHN SCH ×4 (07:32→19:41)
[2016-08-24] MEDS: Albuterol Nebulizer 2.5mg/3mL HHN SCH ×4 (07:32→19:41)
[2016-08-24] MEDS: Pantoprazole 40 mg EC Tab PO SCH ×2 (08:26→16:47)
[2016-08-25] MEDS: Hydrocodone/APAP 10 mg/325 mg Tab PO PRN ×3 (05:47→21:48)
[2016-08-25] MEDS: Albuterol Nebulizer 2.5mg/3mL HHN SCH ×4 (07:42→19:54)
[2016-08-25] MEDS: Ipratropium Neb 0.5 mg/2.5 mL UD HHN SCH ×4 (07:43→19:54)
[2016-08-25] MEDS: Pantoprazole 40 mg EC Tab PO SCH ×2 (08:39→17:12)
[2016-08-25] MEDS: Ferrous Sulfate 325 MG TAB PO SCH (08:39)
--- NOTE | 2016-08-25 09:17 | Progress Notes ---
Case was discussed with staff of the patient, reviewed records. I also talked with who happened to be there. She told me that she was the one who found him. Apparently, she had to go to work. When she came back, he was in the same position and she felt that he is still breathing, tried to woke him up, would not wake up, so called 911. The patient reports that his mother and father ____ he has been very depressed. He so far is out of the ICU, so I will be starting the patient on antidepressant. I chose Remeron because of lack of sleep and discussed side effects of the medication. The patient will need to be going to a psych unit when medically cleared for further treatment of his depression and ____ suicide attempt and continue 1:1 to suicide precaution on this patient and I will be adding Remeron to his medication. Thank you very much for allowing me to participate in the care of this most interesting gentleman. [facility]# [id number]
--- NOTE | 2016-08-26 04:46 | Progress Notes ---
Case discussed with staff of the patient, reviewed records. The patient is medically cleared and was accepted at [facility]. I will be putting him a 5250 hold, transfer to [facility] . He is feeling better on the Remeron, tolerating without side effects, continues to be depressed. He had a very serious suicide attempt, so he needs further hospitalization and he is agreeable to that I thank you very much for allowing me to participate in the care of this most interesting gentleman. JOB# [id number]
[2016-08-26] MEDS: Albuterol Nebulizer 2.5mg/3mL HHN SCH ×4 (07:03→19:22)
[2016-08-26] MEDS: Ipratropium Neb 0.5 mg/2.5 mL UD HHN SCH ×4 (07:03→19:22)
[2016-08-26] MEDS: Pantoprazole 40 mg EC Tab PO SCH ×2 (08:14→17:07)
[2016-08-26] MEDS: Hydrocodone/APAP 10 mg/325 mg Tab PO PRN ×2 (08:14→17:07)
[2016-08-26] MEDS: Ferrous Sulfate 325 MG TAB PO SCH (08:14)
--- NOTE | 2016-09-05 09:17 | Discharge Summary ---
DISCHARGE DIAGNOSES: Include: 1. Multidrug overdose, stabilized. 2. Severe suicide attempt, under control. 3. Anoxic brain injury, stabilized and resolving. 4. Comatose state, resolved. 5. Metabolic derangements, resolved. 6. Acute respiratory distress, resolved. 7. Cerebral brain encephalopathy, resolving. 8. Major depressive episode. 9. Lumbar pathology, chronic pain and anxiety. 10. Mild anemia, resolving. RECENT MEDICAL HISTORY: This patient is a 55-year-old male who presented to [facility] in a comatose state, breathing, but unresponsive. His had found him in this same state earlier in the afternoon at their home and she brought him emergently to the [facility]. The patient is a longstanding patient with Dr. Brandon Bedoya, has been very responsible in presenting to Dr. Bedoya' office with his on a monthly basis and had recently returned from a trip to [place] visiting his 's relatives for several days. He appeared somewhat subdued in his mood on presenting to Dr. Bedoya' office several days before his suicide attempt on 08/20/2016. The patient has a history of taking [place] for back pain and S[place] for muscle spasm caused by that back pain. He also takes Xanax for a moderate anxiety. He has been disabled from work for several years. He also has a concurrent psychiatric history of depression and several suicide attempts in the past, all obviously unsuccessful, one that included driving an automobile over a [place], saved by being caught in the branches of a tree on the way down. On presentation to [facility], this patient had a 2.54 lactic acid level. Body temperature was cold. The Emergency Department physician that initially saw this patient determined that this patient had great difficulty breathing and had it not been for the Emergency Department physician intubating this patient, he may very well have succumbed to his multidrug overdose. It was also found out through questioning the that the patient apparently had also ingested automobile antifreeze, a most definitive suicide attempt, probably the third serious attempt in his lifetime. The Emergency Department physician phoned me at approximately 5 p.m. in the afternoon indicating that he had this patient as a patient, that he has intubated this patient, that he was not responsive but was still with good cardiac function, but his body temperature had been lowered into the low 90s, and he and I discussed the case about starting to warm the patient up and a type of air-filled mattress that surrounds the patient was applied to the patient in attempts to bring the body temperature up as quickly as possible. After I discussed the case with the Emergency Department physician, we decided that the patient most definitively needed to be admitted to the ICU, which included the telemetry and [id number] care and that took place on 08/20/2016. DIAGNOSTIC DATA: 1. There was a head CT scan done without contrast on 08/20/2016, which indicated no acute intracranial abnormality. 2. There was a chest x-ray for visualizing the nasogastric tube placement, chest x-ray done on 08/20/2016, NG tube within the fundus portion of the stomach, no focal consolidation identified. 3. Another chest x-ray done for the same patient demonstrating mild chronic lung changes. Heart size is normal. No focal airspace consolidation identified. LABORATORY DATA: Labs done on 08/20/2016 demonstrating low sodium at 132, elevated chloride at 109, slightly elevated glucose of 124. Urine drug screen performed indicating positive for opiates, positive for benzodiazepines. Urinalysis on 08/20/2016 demonstrating large amount of blood, protein and red blood cells. Ammonia above normal at 54 on 08/21/2016. EKG performed on 08/20/2016, sinus rhythm, biatrial enlargement; anterior infarct, acute; minimal ST elevation anteriorly, lateral leads also developed prolonged QT interval. HOSPITAL COURSE AND TREATMENT: 1. Day #1: 08/20/2016. Blood pressure 144/105, 92 heart rate, 19 respiratory rate, 95.9 body temperature, this was after having been warmed up several hours by the registered nurse taking care of him in the ICU with that mattress-like air-filled apparatus to elevate the body temperature. Lactic acid was 2.54. Blood culture was done. Sputum culture was done. [place] coma scale 3/15. This was verbal nonresponsive, eyes nonresponsive and motor nonresponsive, totally. Totally lowest score possible on [place] coma scale. Apparent multidrug ingestion overdose of opiates and benzodiazepines. Later on, we discovered through the that the patient had also ingested antifreeze. I prescribed activated charcoal and a laxative if possible, fluid hydration, normal saline 100 mL/hour, chest x-ray, and EKG. The patient was intubated obviously and was getting sufficient oxygen because of that. Four consults were ordered. Dr. Valdes, Psychiatry, for the suicide attempt. Dr. Shirley, Pulmonology, for the fact that he was intubated and had respiratory distress. Cardiology consult with Dr. Denis Ye because of abnormal EKG and what we stated before was an EKG demonstrating an acute inferior infarct on one of the original EKGs performed on this patient. Neurology consult with Dr. Birmingham for the brain pathology, the insult of the brain with the anoxic brain injury, because of this multidrug and antifreeze suicide attempt. Poison control was reviewed to determine that all proper steps were taken with this patient. Drug screen and Tylenol levels were also drawn. Ativan 2 mg intravenous slow push every 6 hours as needed for agitation; 98.2 later on, seen the patient later on in the day, several hours later; 109 heart rate, 17 respiratory rate, blood pressure 146/105, 100% O2 saturation. 2. Day #2: 08/21/2016. Lungs were clear to auscultation, sinus rhythm. [place] coma scale had upped from the day before of 10/15, today on 08/21/2016, day #2 was 06/17. Eyes were open. He was still intubated; therefore, that decreased his potential verbal motor use 5/5. Abdomen nontender, nondistended, no abnormal masses palpated. Extremities still have restraints placed, able to move all 4 extremities on command, but very confused. Anoxic brain injury prior to the diagnosis, resolving comatose state, urinary tract infection. In fact, it was not part of the diagnosis. It was blood that was found in the urine and that was from the antifreeze ingestion. The patient also needed a constant sitter; 143/83 blood pressure, 108 cardiac rate, 13 respiratory rate, 100% O2 saturation. 3. Day #3: 08/22/2016: Alert and oriented x3. Mild rhonchi on palpation. [place] coma scale eyes 3, verbal 4, motor 6, 13/15 on the [place] coma scale, resolving comatose state. Temperature 98.6, heart rate 111, blood pressure 120/52, respiratory rate, 17-20, 98% O2 saturation. On attempts to ambulate, the patient demonstrated left foot drop, comatose state resolving, residual left foot drop probably from the antifreeze ingestion: Major depression, stable; suicide attempt, stable; respiratory function, returning. Progressed to regular diet as tolerated. Transferred to medical surgery with Telemetry on day #3. Ambulate as tolerated. Sitter 1:1, continued 5150 on the Medical Surgery Floor and that is because psychiatry, Dr. Isabelle Valdes was the psychiatrist called in for a consult because of the suicide attempt, placed this patient on a 5150, a 3-day legal hold because of the patient wanting to be a threat to himself. Physical therapy evaluation was requested. Rocephin 1000 mg intravenous piggyback every day was part of the treatment protocol. 4. Day #4: 08/23/2016: Alert and oriented x4. Now, the patient was very conversant. Extraocular motion intact. Pupils equally responsive to light and accommodation. HEENT, within normal limits. Clear to auscultation. Normal sinus rhythm. Abdomen, positive bowel sounds, nondistended, nontender to palpation. Neurologically, still continues with left foot drop secondary to anoxic brain injury and encephalopathy. The antifreeze, it should be noted consists of ethylene glycol, methanol, propylene glycol poisoning, a definitive suicide attempt. Left foot drop continues, weakness, unsteady gait. Blood pressure 148/69, [place] coma scale on day 4 is 15/15, totally alert and oriented x4; 98 degrees temperature, 72 heart rate, 18 respiratory rate, O2 saturation 100% on room air. Depression, major episode, suicide attempt. Plan: We will order CBC, comprehensive metabolic panel, urinalysis. We will plan on transferring this patient to [facility] with meds and a walker for mobility secondary to his left foot drop. 5. Day #5: 08/24/2016: Alert and oriented x4. Left foot drop continues. Okay to transfer this patient. Major depressive episode. We are adding ferrous sulfate to his treatment protocol secondary to mild anemia that developed probably from all fluid hydration. Our plan will be to transfer to [facility] and the care of Dr. Valdes, Psychiatry. 6. Day #6: 08/25/2016: 145/86 blood pressure, 98.7 temperature, 78 heart rate, 19 respiratory rate, 99% O2 saturation on room air. Alert and oriented x4, very conversant. Continued left foot drop, third serious suicide attempt, multidrug toxicity, antifreeze ingestion, lumbar pathology, major depressive episode, grief reaction. The patient had lost both parents in the last 12 months. Pending transfer to psychiatric facility. 7. Day #7: 08/26/2016: The patient is effectively transferred to [facility] for a hold and additional psychiatric hold placed on this patient because of the severity of his suicide attempt. CONDITION ON DISCHARGE: The condition of discharge of this patient is stable. The patient is being effectively transferred to the care of psychiatrist, Dr. Isabelle Valdes, for continued psychiatric care. CONSULTANTS: The consultants involved in this case were Dr. Birmingham of Neurology for the comatose state, Dr. Shirley for respiratory distress, Cardiology, Dr. Denis Ye for tachycardia and what the EKG showed was an inferior infarct, Dr. Isabelle Valdes for Psychiatry. FOLLOWUP: The patient will follow up with Dr. Brandon Bedoya upon discharge off the psychiatric facility. JOB# [id number]
== END 2016-08-26 19:45 | DRG 917 ==
LOC: ER 13:15 → ICU 15:50 → MSI 08-23 15:30
PROVIDERS: ADMIT General Practice; ATTEND General Practice
PROC: 5A1935Z Respiratory Ventilation, Less than 24 Consecutive Hours (ICD-10-PCS; principal; 2016-08-20)
PROC: 0BH17EZ Insertion of Endotracheal Airway into Trachea, Via Natural or Artificial Opening (ICD-10-PCS; 2016-08-20)
DX: T40.602A Poisoning by unspecified narcotics, intentional self-harm, initial encounter (principal); J96.00 Acute respiratory failure, unspecified whether with hypoxia or hypercapnia; R40.20 Unspecified coma; G92 Toxic encephalopathy; G93.1 Anoxic brain damage, not elsewhere classified; I47.1 Supraventricular tachycardia; F33.2 Major depressive disorder, recurrent severe without psychotic features; T42.4X2A Poisoning by benzodiazepines, intentional self-harm, initial encounter; T42.8X2A Poisoning by antiparkinsonism drugs and other central muscle-tone depressants, intentional self-harm, initial encounter; Y92.049 Unspecified place in boarding-house as the place of occurrence of the external cause
CPT/HCPCS: 36415-UA; 36600-90; 70450-TC; 71010-TC; 80053-TC; 80320-TC; 80329-TC; 81001-TC; 82140-TC; 82550-TC; 82607-90; 82746-90; 82803-TC; 83036-90; 83605; 83735-TC; 83880-TC; 84100-TC; 84443-TC; 84484-TC; 85007-TC; 85025-TC; 85027-TC; 87070; 90779; 90799; 93005; 94002; 94003; 94760; 96374; 96375; 97530; 99201; J0696; J1644; J2060; J3475; J7030; J7042; J7613; X3904; X6614; Z7502; Z7610